=== PATIENT | female | born 1995 | race Caucasian/White ===

== ENCOUNTER 2020-10-23 17:37 | Emergency (ER) | payer OTHER ==
[~2020-10-23] VITALS: Ht 154.9 cm; Wt 72.6 kg
[~2020-10-23 17:37] MED LIST: IBUP-974 PO; PREN-385 PO
[2020-10-23 17:50] VITALS: BP 138/73
[2020-10-23 18:17] LABS: BASOPHILS # (AUTO) 0.1 K/uL (0.00-0.22); BASOPHILS % (AUTO) 0.5 % (0.0-2.0); EOSINOPHILS # (AUTO) 0.2 K/uL (0-0.4); EOSINOPHILS % (AUTO) 1.8 % (0.0-4.0); HEMATOCRIT 37.3 % (36-48); HEMOGLOBIN 12.4 g/dL (12.0-16.0); LYMPHOCYTES # (AUTO) 3.3 K/uL (2.5-16.5); LYMPHOCYTES % (AUTO) 30.2 % (20.5-51.1); MEAN CORPUSCULAR HEMOGLOBIN 29 pg (27-31); MEAN CORPUSCULAR HGB CONC 33 g/dL (33-37); MEAN CORPUSCULAR VOLUME 86.8 fL (80-94); MONOCYTES # (AUTO) 0.6 K/uL (0.8-1.0); MONOCYTES % (AUTO) 5.8 % (1.7-9.3); NEUTROPHILS # (AUTO) 6.8 K/uL (1.8-7.7); NEUTROPHILS % (AUTO) 61.7 % (42.2-75.2); PLATELET COUNT (AUTO) 339 K/uL (140-450); RED CELL DISTRIBUTION WIDTH 14.9 % (11.6-13.7)
[2020-10-23 18:18] LABS: APPEARANCE,URINE CLEAR (CLEAR); BILIRUBIN,URINE NEGATIVE (NEGATIVE); BLOOD, URINE NEGATIVE (NEGATIVE); COLOR,URINE YELLOW (YELLOW); LEUKOCYTE ESTERASE ,URINE 1+ (NEGATIVE); NITRITE, URINE NEGATIVE (NEGATIVE); PH,URINE 6.5 (5.0-9.0); UGLUCOSE NEGATIVE (NEGATIVE)
[2020-10-23 18:24] LABS: RBC,URINE 0-5 /HPF (0-5)
[2020-10-23] MEDS ORDERED: cephALEXin 500 MG CAP PO ONE ×2 (19:35→20:15)
[2020-10-23] MEDS ORDERED: CEPH-588 PO (19:44)
[2020-10-23] MEDS ORDERED: cephALEXin 500 MG CAP ONE (20:16)
[2020-10-23 20:19] VITALS: BP 131/76
== END 2020-10-23 20:19 | disposition home or self-care (01) ==
LOC: MED 17:37
DX: O23.43 Unspecified infection of urinary tract in pregnancy, third trimester (principal); Z88.8 Allergy status to other drugs, medicaments and biological substances; Z79.899 Other long term (current) drug therapy
CPT/HCPCS: 36415; 76817; 81001; 81025; 84702; 85025; 87086; 99284

== ENCOUNTER 2023-01-24 14:04 | Emergency (ER) | payer OTHER ==
[~2023-01-24] VITALS: Ht 152.4 cm; Wt 83.0 kg
[~2023-01-24 14:04] MED LIST changes: +CEPH-588 PO
[2023-01-24 14:09] VITALS: BP 164/98; PULSE 94; RESP 18; TEMP 98; O2SAT 100
[2023-01-24 14:34] VITALS: BP 155/85; PULSE 91; RESP 24; TEMP 98; O2SAT 100
[2023-01-24] MEDS ORDERED: predniSONE 20 MG TAB PO ONE (15:15)
[2023-01-24] MEDS ORDERED: PRED20TA5 PO (15:21)
== END 2023-01-24 15:40 | disposition home or self-care (01) ==
LOC: MED 14:04
DX: L50.0 Allergic urticaria (principal); I10 Essential (primary) hypertension; Z88.8 Allergy status to other drugs, medicaments and biological substances; Z79.899 Other long term (current) drug therapy
CPT/HCPCS: 81002; 81025; 99283; J7512

== ENCOUNTER 2023-05-17 19:47 | Emergency (ER) | payer OTHER ==
[~2023-05-17] VITALS: Ht 152.4 cm; Wt 80.3 kg
[~2023-05-17 19:47] MED LIST changes: +PRED20TA5 PO
[2023-05-17 19:53] VITALS: BP 162/99; PULSE 112; RESP 20; TEMP 98.4; O2SAT 98
[2023-05-17] MEDS ORDERED: KETOROLAC 60 MG/2 ML VIAL IM ONE (20:30)
[2023-05-17] MEDS ORDERED: IBUP-2213 PO (20:44)
[2023-05-17 21:07] VITALS: BP 162/99; PULSE 112; RESP 20; TEMP 98.4; O2SAT 98
== END 2023-05-17 21:07 | disposition home or self-care (01) ==
LOC: MED 19:47
DX: R20.0 Anesthesia of skin (principal); I10 Essential (primary) hypertension; R51.9 Headache, unspecified; Z79.899 Other long term (current) drug therapy; Z79.1 Long term (current) use of non-steroidal anti-inflammatories (NSAID); Z79.2 Long term (current) use of antibiotics; Z88.8 Allergy status to other drugs, medicaments and biological substances
CPT/HCPCS: 81002; 81025; 96372; 99283; J1885

== ENCOUNTER 2023-06-08 12:20 | Emergency (ER) | payer OTHER ==
[~2023-06-08] VITALS: Ht 152.4 cm; Wt 77.1 kg
[~2023-06-08 12:20] MED LIST changes: +IBUP-2213 PO
[2023-06-08 12:23] VITALS: BP 150/83; PULSE 85; RESP 20; TEMP 97.4; O2SAT 99
[2023-06-08] MEDS ORDERED: VALA1TAB40 PO (12:51)
[2023-06-08] MEDS ORDERED: MINE3.5O4 LEFT EYE (12:51)
[2023-06-08] MEDS ORDERED: PRED20TA5 PO (12:51)
[2023-06-08] MEDS ORDERED: POLY15SO74 LEFT EYE (12:51)
[2023-06-08 12:59] VITALS: BP 125/79; PULSE 85; RESP 20; TEMP 97.4; O2SAT 99
== END 2023-06-08 12:59 | disposition home or self-care (01) ==
LOC: MED 12:20
DX: G51.0 Bell's palsy (principal); I10 Essential (primary) hypertension; Z79.899 Other long term (current) drug therapy; Z79.1 Long term (current) use of non-steroidal anti-inflammatories (NSAID); Z79.2 Long term (current) use of antibiotics; Z88.8 Allergy status to other drugs, medicaments and biological substances
CPT/HCPCS: 99283

== ENCOUNTER 2023-08-26 14:47 | Emergency (ER) | payer OTHER ==
[~2023-08-26] VITALS: Ht 152.4 cm; Wt 73.5 kg
[~2023-08-26 14:47] MED LIST changes: +MINE3.5O4 LEFT EYE; +POLY15SO74 LEFT EYE; +VALA1TAB40 PO
[2023-08-26 15:06] VITALS: BP 129/73; PULSE 70; RESP 17; TEMP 98.7; O2SAT 100
[2023-08-26] MEDS: LOPERAMIDE 2 MG CAP PO ONE (15:51)
[2023-08-26] MEDS: ONDANSETRON 4 MG ODT PO ONE (15:51)
[2023-08-26] MEDS: FAMOTIDINE 20 MG TAB PO ONE (15:51)
[2023-08-26 16:16] LABS: FLU A ANTIGEN negative (NEGATIVE); FLU B ANTIGEN NEGATIVE (NEGATIVE)
[2023-08-26] MEDS ORDERED: LOPE2CAP99 PO (16:24)
[2023-08-26] MEDS ORDERED: ONDA-188 SL (16:24)
[2023-08-26 16:25] VITALS: BP 129/73; PULSE 70; RESP 17; TEMP 98.7; O2SAT 100
== END 2023-08-26 16:28 | disposition home or self-care (01) ==
LOC: MED 14:47
DX: J06.9 Acute upper respiratory infection, unspecified (principal); Z20.822 Contact with and (suspected) exposure to COVID-19; R42 Dizziness and giddiness; E78.5 Hyperlipidemia, unspecified; I10 Essential (primary) hypertension; Z79.899 Other long term (current) drug therapy
CPT/HCPCS: 81025; 87426; 87804; 99284; Q0162